=== PATIENT | male | born 1970 | race Asian ===

== ENCOUNTER 2020-06-07 22:34 | Observation (INO) | payer SELFPAY ==
[~2020-06-07] VITALS: Ht 177.8 cm; Wt 87.8 kg
[2020-06-07 23:16] LABS: BASO % 0.2 % (0.0-2.0); EOS # 0.1 (0.0-0.7); EOS % 0.8 % (0-4.0); GRAN # 15.1 (1.4-6.5); GRAN % 89.6 % (42.2-75.2); HEMATOCRIT 45.7 % (42.0-52.0); HEMOGLOBIN 15.5 g/dl (13.5-18.0); LYMPH # 1.1 (1.2-3.4); LYMPH % 6.2 % (20.0-51.0); MEAN CELL VOLUME 90 fl (80.0-100.0); MEAN CORPUSCULAR HEMOGLOBIN 31 pg (27.0-31.0); MEAN CORPUSCULAR HGB CONC 34 g/dl (33.0-37.0); MEAN PLATELET VOLUME 11.7 fl (7.4-10.4); MONO # 0.5 (0.1-0.6); MONO % 2.8 % (1.7-9.3); PLATELET COUNT 203 K/mm3 (130-400); RED BLOOD COUNT 5.07 M/mm3 (4.20-5.60); REDCELL DISTRIBUTION WIDTH-CV 13.1 % (11.5-14.5)
[2020-06-07 23:27] LABS: ALBUMIN 5.3 gm/dL (3.5-5.0); BILIRUBIN,TOTAL 1.2 mg/dL (0.0-1.0); CALCIUM 9.6 mg/dL (8.4-10.2); CREATININE, serum 0.94 (0.66-1.25); TOTAL PROTEIN 9.5 gm/dL (6.4-8.2)
[2020-06-07 23:32] LABS: C-REACTIVE PROTEIN 0.5 mg/dL (0.0-0.9)
[2020-06-08] VITALS (14 sets, daily range): BP systolic 113–130; BP diastolic 71–84; PULSE 77–100; TEMP 98.6–100.2
[2020-06-08 01:05] LABS: COLLECTION METHOD CLEAN CATCH
[2020-06-08 01:29] LABS: AMORPHOUS CRYSTAL Present /uL; MUCOUS Present /lpf; PH 6 (5-8); SQUAMOUS EPITHELIAL None Seen /hpf; URINE APPEARANCE Clear; URINE BACTERIA None Seen /hpf; URINE BILIRUBIN Negative (NEGATIVE); URINE BLOOD Negative (NEGATIVE); URINE COLOR Yellow; URINE GLUCOSE 1+ (NEGATIVE); URINE KETONE 1+ (NEGATIVE); URINE LEUKOCYTE ESTERASE Negative (NEGATIVE); URINE NITRATE Negative (NEGATIVE); URINE PROTEIN(semi-quant) 1+ (NEGATIVE); URINE RBC 0-2 /hpf; URINE UROBILINOGEN Negative (NEGATIVE)
--- NOTE | 2020-06-08 06:10 | NUR ---
Patient called out to nurses stations, states pain to RUQ is 7/10, stabbing. Medicaitons given per orders. Denies further needs at this time. Will report off to day shift.
[2020-06-08 07:50] LABS: BASO % 0.2 % (0.0-2.0); EOS % 0.2 % (0-4.0); GRAN # 11.3 (1.4-6.5); GRAN % 84.7 % (42.2-75.2); HEMATOCRIT 42.6 % (42.0-52.0); HEMOGLOBIN 14.4 g/dl (13.5-18.0); LYMPH # 1.4 (1.2-3.4); LYMPH % 10.5 % (20.0-51.0); MEAN CELL VOLUME 90 fl (80.0-100.0); MEAN CORPUSCULAR HEMOGLOBIN 30 pg (27.0-31.0); MEAN CORPUSCULAR HGB CONC 34 g/dl (33.0-37.0); MEAN PLATELET VOLUME 11.6 fl (7.4-10.4); MONO # 0.5 (0.1-0.6); MONO % 4.1 % (1.7-9.3); PLATELET COUNT 192 K/mm3 (130-400); RED BLOOD COUNT 4.76 M/mm3 (4.20-5.60)
[2020-06-08 07:54] LABS: INR 1.2 (0.8-3.0); PROTHROMBIN TIME 13.1 SECONDS (9.7-12.8)
[2020-06-08 07:59] LABS: ALBUMIN 4.5 gm/dL (3.5-5.0); BILIRUBIN,TOTAL 1.5 mg/dL (0.0-1.0); CALCIUM 8.5 mg/dL (8.4-10.2); CREATININE, serum 1.01 (0.66-1.25); POTASSIUM 3.9 mmol/L (3.4-5.0); TOTAL PROTEIN 7.9 gm/dL (6.4-8.2)
--- NOTE | 2020-06-08 09:45 | NUR ---
Patient alert and oriented, answers questions appropriately. See assessment. Abdomen soft, tender, non distended. Bowel sounds active x4 quads. No flatus. C/o 5/10 pain, increasing to 9/10 at times. No other c/o at this time.
--- NOTE | 2020-06-08 09:50 | NUR ---
ADENIKE met with the patient to discuss discharge plan. The patient lives in [place] with his , Sameer (ph#[phone]), and their two children. 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 He reports independence with ADLs and does not have any DME. The patient states that he does not have a PCP. He states that he hardly ever has any health problems and just goes to [facility]. He receives his medications from [facility]. The patient does not have a DPOA-HC. The patient is self pay. The patient reports that he has a [employer] health insurance and he had it's information on his phone. ADENIKE notified Financial Counselor, Yahaira. Yahaira plans to meet with the patient and also provide a SOBRA/FAA. The patient plans to return home with his family upon discharge. No additional needs at this time.
--- NOTE | 2020-06-08 12:04 | NUR ---
Patient to surgery with surgical staff at this time.
[2020-06-08] MEDS ORDERED: PERCOCET 325 MG1 TA2 PO (13:54)
[2020-06-08] MEDS ORDERED: MOTRIN 600600 MG/TAB PO (13:54)
[2020-06-08] MEDS ORDERED: AMOXICILLIN 8751 TAB PO (13:54)
--- NOTE | 2020-06-08 15:00 | NUR ---
Patient returns from lap kaur, assessment unchanged except for abdomen with lap sites x3, no redness or drainage noted. No flatus. Post op exercises reviewed. No c/o at this time.
--- NOTE | 2020-06-08 20:00 | NUR ---
Report received, assumed care for forestry engineer. Assessment complete. VS stable. A&Ox3-drowsy/medicated. Denies pain/nausea/shorntess of breath. Lap sites x3-edges well approximated-swift[place]. Plan of care discussed for this shift to include HS meds/pain meds/ambulation/calling for questions/concerns. Verbalizes understanding/denies questions/concerns. Call light in reach. Will monitor.
[2020-06-09 00:31] VITALS: BP 127/81; PULSE 93; TEMP 98.6
[2020-06-09 03:38] VITALS: BP 115/73; PULSE 80; TEMP 98.4
--- NOTE | 2020-06-09 05:44 | NUR ---
Rested well this shift. Pain controlled with scheduled PO pain meds. Has been up in room several times this shift. Did not ambulate in hallway due to fear of covid. Tolerating PO. INTd this AM. Denies questions/concerns. Call light in reach. Will monitor.
[2020-06-09 07:51] VITALS: BP 123/82; PULSE 83; TEMP 98.9
[2020-06-09 11:56] VITALS: BP 123/78; PULSE 86; TEMP 98.3
--- NOTE | 2020-06-09 11:56 | NUR ---
First visit from the radio time sales supervisor. No needs right now.
--- NOTE | 2020-06-09 12:02 | NUR ---
Patient alert and oriented, answers questions appropriately. See assessment. Abdomen soft, non tender, non distended. Bowel sounds active x4 quads. + Flatus. +Bowel movement. Lap sites to abdomen with edges well approximated, no redness or drainage needed. Post op exercises reviewed with patient. No c/o at this time.
--- NOTE | 2020-06-09 15:33 | NUR ---
Discharge instructions reviewed with patient, verbalized understanding. Discharged via wheelchair to auto/home with family at 1500
== END 2020-06-09 15:05 | disposition home or self-care (01) ==
LOC: COL.ER 22:34 → SURG 06-08 00:25
PROVIDERS: Nurse Practitioner; ADMIT Surgery
DX: K80.12 Calculus of gallbladder with acute and chronic cholecystitis without obstruction (principal)
CPT/HCPCS: G0378; J0330; J0690; J1100; J1170; J1885; J2250; J2405; J2543; J2704; J3010; J3230; J7030; Q9967